=== PATIENT | male | born 1945 | race Caucasian/White ===

== ENCOUNTER 2016-08-04 06:40 | Outpatient (CLI) | payer MEDICARE, OTHER | END 2016-08-04 06:41 | disposition home or self-care (01) | DX: I10 Essential (primary) hypertension (principal); Z79.899 Other long term (current) drug therapy; E78.2 Mixed hyperlipidemia; R97.20 Elevated prostate specific antigen [PSA] ==

== ENCOUNTER 2016-08-04 13:28 | Emergency (ER) | payer MEDICARE, OTHER ==
[2016-08-04] MEDS ORDERED: ASPIRIN CHEW 81 MG TABLET ONE (13:38)
[2016-08-04] MEDS ORDERED: NITROGLYCERIN 50 MG/250 ML 250 ML IV STA (13:44)
[2016-08-04] MEDS ORDERED: ASPIRIN CHEW 81 MG TABLET PO STA (13:44)
[2016-08-04] MEDS ORDERED: METOPROLOL TARTRATE 50 MG TABLET PO STA (13:44)
[2016-08-04] MEDS ORDERED: ATORVASTATIN 40 MG TABLET PO STA (13:44)
[2016-08-04] MEDS ORDERED: METOPROLOL TARTRATE 50 MG TABLET ONE (13:49)
[2016-08-04] MEDS ORDERED: NITROGLYCERIN 50 MG/250 ML 250 ML IV ONE (13:49)
[2016-08-04] MEDS ORDERED: HEPARIN 25,000 UNITS/500 ML 500 ML IV STA (13:58)
[2016-08-04] MEDS ORDERED: HEPARIN 5,000 UNIT/ML VIAL IVP ONE (13:58)
[2016-08-04] MEDS ORDERED: HEPARIN 5,000 UNIT/ML VIAL ONE (13:59)
[2016-08-04] MEDS ORDERED: HEPARIN 25,000 UNITS/500 ML 500 ML IV ONE (13:59)
== END 2016-08-04 14:22 | disposition short-term general hospital (02) ==
DX: R07.89 Other chest pain (principal); I25.10 Atherosclerotic heart disease of native coronary artery without angina pectoris; R94.31 Abnormal electrocardiogram [ECG] [EKG]; I49.3 Ventricular premature depolarization; I10 Essential (primary) hypertension; E78.00 Pure hypercholesterolemia, unspecified; F17.200 Nicotine dependence, unspecified, uncomplicated; Z79.899 Other long term (current) drug therapy
CPT/HCPCS: 36415; 71010; 80053; 80061; 82550; 82553; 83690; 84154; 84484; 85025; 85610; 93005; 93010; 96365; 96375; 96376; 99284; 99285; A9270

== ENCOUNTER 2016-08-04 14:20 | Outpatient (CLI) | payer MEDICARE, OTHER | END 2016-08-04 14:21 | disposition short-term general hospital (02) | LOC: EMS 14:20 | PROVIDERS: ATTEND Surgery | DX: R07.9 Chest pain, unspecified (principal); R94.31 Abnormal electrocardiogram [ECG] [EKG] | CPT/HCPCS: A0425; A0427 ==

== ENCOUNTER 2017-08-09 08:29 | Outpatient (CLI) | payer MEDICARE, OTHER ==
[2017-08-09 08:56] LABS: BASOPHILS # (AUTO) 0.1 10^3/uL (0.0-0.1); BASOPHILS % (AUTO) 0.6 %; EOSINOPHILS # (AUTO) 0.1 10^3/uL (0.0-0.7); HGB - HEMOGLOBIN 15.3 g/dL (14.0-18.0); LYMPHOCYTES # (AUTO) 1.9 10^3/uL (1.5-3.5); LYMPHOCYTES % (AUTO) 20.5 %; MEAN CORPUSCULAR HEMOGLOBIN 30.4 pg (27.0-31.0); MEAN CORPUSCULAR HGB CONC 34.5 g/dL (32.0-36.0); MEAN CORPUSCULAR VOLUME 88.3 fL (80.0-94.0); MEAN PLATELET VOLUME 8.2 fL (7.4-11.4); MONOCYTES % (AUTO) 10.7 %; NEUTROPHILS # (AUTO) 6.1 10^3/uL (1.5-6.6); NEUTROPHILS % (AUTO) 67.2 %; PLT - PLATELET COUNT 261 10^3/uL (130-450); RED BLOOD COUNT 5.04 10^6/uL (4.70-6.10); RED CELL DISTRIBUTION WIDTH 13.5 % (12.0-15.0); WHITE BLOOD COUNT 9.1 x10^3/uL (4.8-10.8)
[2017-08-09 09:18] LABS: ALBUMIN 4.6 g/dL (3.2-5.5); ALBUMIN/GLOBULIN RATIO 1.3 (1.0-2.2); ALKALINE PHOSPHATASE 49 IU/L (42-121); ALT ALANINE AMINOTRANSFERASE 15 IU/L (10-60); AST ASPARTATE AMINOTRANSFERASE 22 IU/L (10-42); BILIRUBIN,TOTAL 1.1 mg/dL (0.2-1.0); BUN - BLOOD UREA NITROGEN 18 mg/dL (6-20); CALCIUM 9.1 mg/dL (8.5-10.3); CARBON DIOXIDE - CO2 27 mmol/L (21-32); CHLORIDE 99 mmol/L (101-111); CHOL/HDL RATIO 2.9 (<5.0); CHOLESTEROL 146 mg/dL; CREATININE 1.1 mg/dL (0.6-1.2); GFR - MDRD 66 (>89); GLUCOSE 113 mg/dL (70-100); HDL CHOLESTEROL 50 mg/dL; LDL CHOLESTEROL,CALCULATED 75 mg/dL; LDL/HDL RATIO 1.5 (<3.6); SODIUM 136 mmol/L (135-145); TOTAL PROTEIN 8.1 g/dL (6.7-8.2); VLDL CHOLESTEROL 21 mg/dL
[2017-08-09 09:39] LABS: PSA FREE 0.59 ng/mL (0.16-2.81)
[2017-08-09 09:40] LABS: PSA TOTAL 3.67 ng/mL (0.000-2.000)
[2017-08-09 15:53] LABS: HB2 TOTAL 16.6 g/dL; HEMOGLOBIN A1C 0.68 g/dL; HEMOGLOBIN A1C % 5.9 % (4.6-6.2)
== END 2017-08-09 08:30 | disposition home or self-care (01) ==
LOC: LAB 08:29
PROVIDERS: ATTEND Internal Medicine
DX: R97.20 Elevated prostate specific antigen [PSA] (principal); R73.9 Hyperglycemia, unspecified; E78.5 Hyperlipidemia, unspecified; I25.10 Atherosclerotic heart disease of native coronary artery without angina pectoris; I10 Essential (primary) hypertension; Z79.899 Other long term (current) drug therapy
CPT/HCPCS: 36415; 80053; 80061; 83036; 83721; 84154; 85025